=== PATIENT | male | born 1965 | race Caucasian/White ===

== ENCOUNTER 2020-05-01 11:52 | Emergency (ER) | payer BC ==
[~2020-05-01] VITALS: Ht 180.3 cm; Wt 90.7 kg
[2020-05-01 12:00] VITALS: BP_SYST 145
[2020-05-01 12:52] LABS: BASOPHILS # (AUTO) 0.1 K/uL (0.0-0.2); BASOPHILS % (AUTO) 0.9 % (0.0-2.0); EOSINOPHILS # (AUTO) 0.1 K/uL (0.0-0.4); EOSINOPHILS % (AUTO) 1.4 % (0.0-4.0); HEMATOCRIT 48.5 % (36-54); HEMOGLOBIN 16.4 g/dL (14.0-18.0); LYMPHOCYTES # (AUTO) 2.3 K/uL (1.0-5.5); MEAN CORPUSCULAR HEMOGLOBIN 30 pg (27-31); MEAN CORPUSCULAR HGB CONC 34 % (32-36); MEAN CORPUSCULAR VOLUME 88 fL (79.0-98.0); MONOCYTES # (AUTO) 0.5 K/uL (0.0-1.0); MONOCYTES % (AUTO) 6.8 % (1.7-9.3); NEUTROPHILS % (AUTO) 57.9 % (40.0-70.0); PLATELET COUNT (AUTO) 220 K/uL (130-430); RED BLOOD CELL COUNT(AUTO) 5.51 MIL/uL (4.2-6.2); RED CELL DISTRIBUTION WIDTH 13.7 % (9.0-15.0); WHITE BLOOD COUNT (AUTO) 6.9 K/uL (4.8-10.8)
[2020-05-01 13:00] LABS: CALCIUM 9.1 mg/dL (8.4-11.0); CREATININE 1.01 mg/dL (0.55-1.30); POTASSIUM 3.8 mmol/L (3.5-5.1)
[2020-05-01 13:03] LABS: PROTHROMBIN TIME 10.5 SECS (9.5-12.5)
[2020-05-01 13:05] LABS: TOTAL BILIRUBIN 0.4 mg/dL (0.0-1.0)
[2020-05-01 13:31] VITALS: BP_SYST 145
[2020-05-01] MEDS ORDERED: IOHEXOL 100 ML IV ONE (17:24)
[2020-05-02] MEDS ORDERED: AZIT250T PO (13:20)
== END 2020-05-01 13:31 | disposition home or self-care (01) ==
LOC: SED 11:52
DX: J40 Bronchitis, not specified as acute or chronic (principal); R04.2 Hemoptysis; Z87.891 Personal history of nicotine dependence
CPT/HCPCS: 36415; 71045; 80053; 85025; 85610; 99284; Q9967